=== PATIENT | male | born 1990 | race Two or more races ===

== ENCOUNTER 2023-06-01 11:05 | Day surgery (SDC) | payer OTHER ==
[2023-05-31 12:29] LABS: Basophils # (auto) 0.1 10 ^3/uL (0-0.2); Basophils % (auto) 0.6 % (0.0-2.0); Eosinophils # (auto) 0.3 10 ^3/uL (0-0.8); Eosinophils % (auto) 3.8 % (0.0-7.0); Hematocrit 51.3 % (41.0-53.0); Hemoglobin 17.5 g/dL (13.5-17.5); Lymphocytes # (auto) 1.8 10 ^3/uL (0.4-5.4); Lymphocytes % (auto) 21.9 % (10.0-50.0); Mean Corpuscular Hemoglobin 30.6 pg (28.0-32.0); Mean Corpuscular Hgb Conc. 34.1 g/dL (32.0-36.0); Mean Corpuscular Volume 89.6 fL (80.0-100.0); Monocytes # (auto) 0.8 10 ^3/uL (0-1.3); Monocytes % (auto) 10.2 % (0.0-12.0); Neutrophils # (auto) 5.3 10 ^3/uL (1.6-8.6); Neutrophils % (auto) 63.5 % (37.0-80.0); Nucleated Red Blood Cells % 0.2 %; Red Blood Cells 5.72 10^6/uL (4.5-5.90); Red Cell Distribution Width 13.1 % (11.8-14.3); White Blood Cell 8.3 10^3/uL (4.4-10.8)
[2023-05-31 12:38] LABS: Urine Bacteria NONE SEEN /hpf (None Seen); Urine Blood Negative /uL (Negative); Urine Clarity Clear (Clear); Urine Protein, UAD Negative (Negative); Urine Urobilinogen Normal (Negative); Urine WBC 1 /hpf (0 - 3)
[2023-05-31 12:39] LABS: Urine Color Straw (Yellow)
[2023-05-31 12:52] LABS: INR 1.02 (0.9-1.15); Partial Thromboplastin Time 28.7 SEC (24.5-34.5); Prothrombin Time 10.7 sec (9.3-11.8)
[2023-05-31 13:14] LABS: Albumin 4.4 g/dL (3.4-5.0)
[2023-05-31 13:16] LABS: BUN/Creatinine Ratio 11.5 (10.0-20.0)
[2023-05-31 13:19] LABS: Bilirubin, Total 0.8 mg/dL (0.2-1.0); Total Protein 8.2 g/dL (6.4-8.2)
[~2023-06-01] VITALS: Ht 172.7 cm; Wt 116.6 kg
[~2023-06-01 11:05] MED LIST: BUPIVACAINE 0.25% INJ 50ML VIAL ONE; DexAMETHasone SOD PHOS 10MG/1ML VIAL INJ ONE; DexAMETHasone SOD PHOS 4 MG/1ML SDV INJ ONE; EPINEPHrine HCL 1 MG/1 ML AMP ONE; GLYCOPYRROLATE 0.2 MG/ML 1ML VIAL ONE; IBUP-1454 PO; KETAMINE HCL 10 ML ONE; KETOROLAC TROMETH 30 MG/ML 1ML VIAL ONE; LORA-622 PO; OMEP20TA PO; ONDANSETRON HCL 4 MG/2 ML VIAL ONE; PROPOFOL 10 MG/ML 20 ML IV ONE; ROCURONIUM 10MG/ML 10ML VIAL IV ONE; SUGAMMADEX 200mg/2ml Vial (100MG/ML) IV ONE; TRAM50TA2 PO; fentaNYL CITRATE 100 MCG/2 ML VL ONE
[2023-06-01] MEDS ORDERED: SODIUM CHLORIDE LOCK 10 ML ONE (11:36)
[2023-06-01] MEDS ORDERED: ceFAZolin 1GM/50ML 100 ML IV ONE (11:37)
[2023-06-01] MEDS ORDERED: CELECOXIB 100 MG CAP PO ONE (11:45)
[2023-06-01] MEDS ORDERED: GABAPENTIN 400 MG CAP PO ONE (11:45)
[2023-06-01] MEDS ORDERED: ACETAMINOPHEN IV 1000 MG/100ML (10MG/ML) IV ONE (11:45)
[2023-06-01] MEDS ORDERED: ESMOLOL HCL 10 ML IV ONE (12:38)
[2023-06-01] MEDS ORDERED: BACITRACIN TOP OINT 1 UD PKG TOP ONE (13:38)
[2023-06-01 14:52] VITALS: PULSE 121; RESP 14; TEMP 97.4; O2SAT 99
[2023-06-01] MEDS ORDERED: ePHEDrine SULFATE 50 MG/ML AMP IV PRN (15:15)
[2023-06-01] MEDS ORDERED: ONDANSETRON HCL 4 MG/2 ML VIAL IV PRN (15:15)
[2023-06-01] MEDS ORDERED: NALOXONE HCL 0.4 MG/ML VIAL IV PRN (15:15)
[2023-06-01] MEDS ORDERED: oxyCODONE HCL 5MG TAB PO PRN (15:15)
[2023-06-01] MEDS ORDERED: LABETALOL HCL 5 MG/ML 4ML SYRINGE IV PRN (15:15)
[2023-06-01] MEDS ORDERED: hydrALAZINE HCL 20 MG/ML VL IV PRN (15:15)
[2023-06-01] MEDS ORDERED: ALBUTEROL SULF 2.5 MG/0.5ML(0.5%) NEB SOLN NEB ONE (15:15)
[2023-06-01] MEDS ORDERED: fentaNYL CITRATE 100 MCG/2 ML VL IV PRN (15:15)
[2023-06-01] MEDS ORDERED: FLUMAZENIL 0.1 MG/ML INJ 10ML MDV IV PRN (15:15)
[2023-06-01] MEDS ORDERED: HYDROmorphone HCL 2 MG/ML VL/or syr IV PRN (15:15)
[2023-06-01] MEDS ORDERED: ALBUTEROL SULF 2.5 MG/0.5ML(0.5%) NEB SOLN ONE (15:18)
[2023-06-01 15:23] VITALS: PULSE 98; RESP 20; O2SAT 99
[2023-06-01 15:25] VITALS: PULSE 99; RESP 13; O2SAT 99
[2023-06-01 16:07] VITALS: BP 113/71; PULSE 100; RESP 22; O2SAT 95
== END 2023-06-01 16:21 | disposition home or self-care (01) ==
LOC: SUR 11:05
PROVIDERS: ATTEND Orthopaedic Surgery Sports Medicine
DX: S76.112A Strain of left quadriceps muscle, fascia and tendon, initial encounter (principal); X58.XXXA Exposure to other specified factors, initial encounter; Y93.89 Activity, other specified; Y92.89 Other specified places as the place of occurrence of the external cause; Y99.8 Other external cause status
CPT/HCPCS: 27385; 36415; 73560; 76000; 80053; 81001; 85025; 85610; 85730; C1713; C1762; J0131; J0171; J0690; J1100; J1885; J2405; J2704; J3010; J3490; J7030